=== PATIENT | male | born 1990 | race Caucasian/White ===

== ENCOUNTER → 2025-04-25 | Outpatient (CLI) | payer OTHER, SELFPAY ==
--- NOTE | 2025-04-25 09:44 | EKG_ITS ---
[facility] Test Date: 2025-04-25 Pat Name: BANDAR ROWAN Department: Room: - Gender: Male Erp Project Manager: DELANO : 1990 Requested By: Kevin Daugherty Order Number: [id number] Reading MD: Kevin Daugherty Measurements Intervals [place] Rate: 70 P: -4 PA: 179 QRS: 45 QRSD: 93 T: 6 QT: 371 QTc: 401 Interpretive Statements SINUS RHYTHM No previous ECG available for comparison /store/[email or web address]/[id number].pdf
[2025-04-25 09:58] LABS: Anion Gap 11 (7-16); BUN/Creatinine Ratio 8 Ratio (12-20); Blood Urea Nitrogen 9 mg/dL (9-23); Calcium 9.7 mg/dL (8.3-10.6); Carbon Dioxide 27.0 mMol/L (20.0-31.0); Chloride 105 mMol/L (98-107); Creatinine (Component) 1.1 mg/dL (0.6-1.3); Glucose 102 mg/dL (74-106); Osmolality,Calculated 283 (275-295); Potassium 3.9 mMol/L (3.4-5.1); Sodium 143 mMol/L (136-145); eGFR > 60 See Note
== END | disposition home or self-care (01) ==
LOC: COPL 08:52
PROVIDERS: PCP Family Medicine; Referring Provider Surgery Surgery of the Hand; Visit Provider Surgery Surgery of the Hand
DX: Z01.818 Encounter for other preprocedural examination (principal); M24.232 Disorder of ligament, left wrist; Z01.810 Encounter for preprocedural cardiovascular examination
CPT/HCPCS: 36415; 80048; 93005